=== PATIENT | male | born 1955 | race Caucasian/White ===

== ENCOUNTER 2016-11-06 09:09 | Outpatient (CLI) | payer OTHER ==
[2013-08-19 15:17] VITALS: BP 130/70
== END 2016-11-06 09:10 ==
LOC: LAB 09:09
PROVIDERS: ATTEND Family Medicine
DX: Z51.81 Encounter for therapeutic drug level monitoring (principal); Z79.01 Long term (current) use of anticoagulants
CPT/HCPCS: 36415; 85610

== ENCOUNTER 2016-11-27 09:04 | Outpatient (CLI) | payer OTHER ==
[2013-08-19 15:17] VITALS: BP 130/70
== END 2016-11-27 09:05 ==
LOC: LAB 09:04
PROVIDERS: ATTEND Family Medicine
DX: E11.9 Type 2 diabetes mellitus without complications (principal)
CPT/HCPCS: 36415; 83036

== ENCOUNTER 2016-12-07 08:14 | Outpatient (CLI) | payer OTHER ==
[2013-08-19 15:17] VITALS: BP 130/70
== END 2016-12-07 08:15 ==
LOC: LAB 08:14
PROVIDERS: ATTEND Family Medicine
DX: Z51.81 Encounter for therapeutic drug level monitoring (principal); Z79.01 Long term (current) use of anticoagulants; I48.2 Chronic atrial fibrillation
CPT/HCPCS: 36415; 85610

== ENCOUNTER 2016-12-21 08:00 | Outpatient (CLI) | payer OTHER ==
[2013-08-19 15:17] VITALS: BP 130/70
== END 2016-12-21 08:02 ==
LOC: LAB 08:00
PROVIDERS: ATTEND Family Medicine
DX: Z51.81 Encounter for therapeutic drug level monitoring (principal); Z79.01 Long term (current) use of anticoagulants
CPT/HCPCS: 36415; 85610

== ENCOUNTER 2017-01-22 08:37 | Outpatient (CLI) | payer OTHER ==
[2013-08-19 15:17] VITALS: BP 130/70
== END 2017-01-22 08:40 ==
LOC: LAB 08:37
PROVIDERS: ATTEND Family Medicine
DX: Z51.81 Encounter for therapeutic drug level monitoring (principal); Z79.01 Long term (current) use of anticoagulants
CPT/HCPCS: 36415; 85610

== ENCOUNTER 2017-02-20 10:25 | Emergency (ER) | payer OTHER ==
--- NOTE | 2017-02-20 11:06 | ED Physician Documentation ---
General Adult - HISTORIAN Historian: patient - HPI Chief Complaint: Upper Back Injury/ Pain Onset: days ago (2 days) Timing: still present Severity: mild Further Comments: yes - ROS CONST: no problems - PAST HX Past History: COPD, A-Fib, other (GERDs, sleep apnea, hyperlipdemia) Other History: diabetes Type 2 Surgeries/Procedures: other (heart valve replacement, ) Allergies/Adverse Reactions: Allergies Allergy/AdvReac Type Severity Reaction Status Date / Time amoxicillin [Amoxicillin] Allergy Severe Anaphylaxis Verified 02/20/17 11:04 Home Medications: Ambulatory Orders Medication Instructions Recorded Aspirin [Mavis] 81 mg PO 1T 02/20/17 Canagliflozin [Invokana] 100 mg PO BID 02/20/17 Potassium Chloride [Klor-Con 10 meq PO 1202/20/17 Sprinkle] - SOCIAL HX Smoking History: greater than 1 pack/day Alcohol Use: occasionally Drug Use: none - FAMILY HX Family History: No - VITAL SIGNS Vital Signs: Vital Signs Temp Pulse Resp BP Pulse Ox 130/70 08/19/13 15:14 - REVIEWED ASSESSMENTS Nursing Assessment Reviewed: Yes Vitals Reviewed: Yes General Adult Physical Exam - PHYSICAL EXAM GENERAL APPEARANCE: mild distress NECK: normal inspection RESPIRATORY: no resp distress, chest non-tender, breath sounds normal CVS: reg rate & rhythm, other (murmur and click) ABDOMEN: soft, no organomegaly, normal bowel sounds, no abdominal bruit SKIN: other (left mid vega nodule3-4mm in diameter. Movable.) NEURO: oriented X3, mood/affect nml, cognition normal Discharge Clincal Impression: Hand pain, left Referrals: Colette Escobar MD [Primary Care Provider] - 2 Days Additional Instructions: Watch the spot in your hand. Follow-up with Dr Escobar as needed. Home Medications: Ambulatory Orders Aspirin [Mavis] 81 mg PO 1T 02/20/17 Canagliflozin [Invokana] 100 mg PO BID 02/20/17 Potassium Chloride [Klor-Con Sprinkle] 10 meq PO 12HS 02/20/17 Condition: Stable Disposition: 01 HOME, SELF-CARE Decision to Admit: NO Date of Decison to Admit: 02/20/17 Decision Time: 12:27
[2017-02-20 12:42] VITALS: BP 110/67
== END 2017-02-20 12:39 | disposition home or self-care (01) ==
LOC: ED 10:25
DX: M79.642 Pain in left hand (principal)
CPT/HCPCS: 36415; 85610; 99283

== ENCOUNTER 2017-03-05 09:02 | Outpatient (CLI) | payer OTHER ==
[2017-03-05 09:29] LABS: BASOPHILS % 0.5 (0.0-1.5); EOSINOPHILS % 3.3 % (0.0-6.8); MEAN CORPUSCULAR HEMOGLOBIN 31.6 pg (28.0-34.0); MEAN CORPUSCULAR VOLUME 96.2 fl (80.0-100.0); MONOCYTES % 4.9 % (0.0-11.0); NEUTROPHILS # 5.5 # k/uL (1.4-7.7)
[2017-03-05 09:59] LABS: eGFR (African) > 60; eGFR (Non-African) > 60
--- NOTE | 2017-03-05 14:12 | Diagnostic Imaging Report ---
[facility] [address] [facility] [address] Report Submission Date: March 05, 2017 11:03:37 AM CDT Patient Study Name: LENNOX DOE Date: March 05, 2017 9:53:14 AM CDT Modality Type: CR Gender: M Description: CHEST : 59 Institution: [facility] Physician MICHELLE ATKINSON - OP Chest -two views CLINICAL HISTORY: Weight loss. Smoking history. FINDINGS: Examination of the chest in PA and lateral views with no prior film for comparison demonstrates the lungs to be clear. There are postoperative changes with sternotomy wires and prosthetic valve. Degenerative changes are present in the shoulders. IMPRESSION: Postoperative chest. No active disease. Electronically signed on March 05, 2017 11:03:37 AM CDT by: Zi PADILLA
== END 2017-03-05 09:03 ==
LOC: RAD 09:02
PROVIDERS: ATTEND Family Medicine
DX: E11.9 Type 2 diabetes mellitus without complications (principal); R63.4 Abnormal weight loss
CPT/HCPCS: 36415; 71020; 80053; 80061; 82043; 83036; 84443; 85025

== ENCOUNTER 2017-04-02 07:50 | Outpatient (CLI) | payer OTHER | END 2017-04-02 07:52 | LOC: LAB 07:50 | PROVIDERS: ATTEND Family Medicine | DX: Z51.81 Encounter for therapeutic drug level monitoring (principal) | CPT/HCPCS: 36415; 85610 ==

== ENCOUNTER 2017-04-10 14:13 | Outpatient (CLI) | payer OTHER | END 2017-04-10 14:18 | disposition home or self-care (01) | LOC: CARD 14:13 | PROVIDERS: ATTEND Internal Medicine Cardiovascular Disease | DX: Z95.4 Presence of other heart-valve replacement (principal) | CPT/HCPCS: G0463 ==

== ENCOUNTER 2017-04-26 08:05 | Outpatient (CLI) | payer OTHER | END 2017-04-26 08:06 | LOC: LAB 08:05 | PROVIDERS: ATTEND Family Medicine | DX: Z79.01 Long term (current) use of anticoagulants (principal) | CPT/HCPCS: 36415; 85610 ==

== ENCOUNTER 2017-05-01 08:05 | Outpatient (CLI) | payer OTHER | END 2017-05-01 08:06 | LOC: LAB 08:05 | PROVIDERS: ATTEND Family Medicine | DX: Z79.01 Long term (current) use of anticoagulants (principal) | CPT/HCPCS: 36415; 85610 ==

== ENCOUNTER 2017-05-15 07:53 | Outpatient (CLI) | payer OTHER | END 2017-05-15 07:54 | LOC: LAB 07:53 | PROVIDERS: ATTEND Family Medicine | DX: Z79.01 Long term (current) use of anticoagulants (principal) | CPT/HCPCS: 36415; 85610 ==

== ENCOUNTER 2017-05-22 08:08 | Outpatient (CLI) | payer OTHER | END 2017-05-22 08:10 | LOC: LAB 08:08 | PROVIDERS: ATTEND Family Medicine | DX: Z51.81 Encounter for therapeutic drug level monitoring (principal) | CPT/HCPCS: 36415; 85610 ==

== ENCOUNTER 2017-06-11 08:50 | Outpatient (CLI) | payer OTHER | END 2017-06-11 08:52 | LOC: LAB 08:50 | PROVIDERS: ATTEND Family Medicine | DX: E11.9 Type 2 diabetes mellitus without complications (principal) | CPT/HCPCS: 36415; 83036 ==

== ENCOUNTER 2017-07-05 08:26 | Outpatient (CLI) | payer OTHER | END 2017-07-05 08:27 | LOC: LAB 08:26 | PROVIDERS: ATTEND Family Medicine | DX: Z79.01 Long term (current) use of anticoagulants (principal) | CPT/HCPCS: 36415; 85610 ==

== ENCOUNTER 2017-07-10 08:05 | Outpatient (CLI) | payer OTHER | END 2017-07-10 08:06 | LOC: LAB 08:05 | PROVIDERS: ATTEND Family Medicine | DX: Z79.01 Long term (current) use of anticoagulants (principal) | CPT/HCPCS: 36415; 85610 ==

== ENCOUNTER 2017-07-30 07:56 | Outpatient (CLI) | payer OTHER | END 2017-07-30 07:57 | LOC: LAB 07:56 | PROVIDERS: ATTEND Family Medicine | DX: Z51.81 Encounter for therapeutic drug level monitoring (principal) | CPT/HCPCS: 36415; 85610 ==

== ENCOUNTER 2017-08-31 07:57 | Outpatient (CLI) | payer OTHER | END 2017-08-31 08:00 | LOC: LAB 07:57 | PROVIDERS: ATTEND Family Medicine | DX: Z51.81 Encounter for therapeutic drug level monitoring (principal) | CPT/HCPCS: 36415; 85610 ==

== ENCOUNTER 2017-10-08 08:25 | Outpatient (CLI) | payer OTHER | END 2017-10-08 08:26 | LOC: LAB 08:25 | PROVIDERS: ATTEND Family Medicine | DX: E11.9 Type 2 diabetes mellitus without complications (principal); Z51.81 Encounter for therapeutic drug level monitoring | CPT/HCPCS: 36415; 83036; 85610 ==

== ENCOUNTER 2017-10-29 08:14 | Outpatient (CLI) | payer OTHER | END 2017-10-29 08:15 | LOC: LAB 08:14 | PROVIDERS: ATTEND Family Medicine | DX: Z51.81 Encounter for therapeutic drug level monitoring (principal) | CPT/HCPCS: 36415; 85610 ==

== ENCOUNTER 2017-11-28 08:00 | Outpatient (CLI) | payer OTHER | END 2017-11-28 08:02 | LOC: LAB 08:00 | PROVIDERS: ATTEND Family Medicine | DX: Z51.81 Encounter for therapeutic drug level monitoring (principal) | CPT/HCPCS: 36415; 85610 ==

== ENCOUNTER 2017-12-27 08:00 | Outpatient (CLI) | payer OTHER | END 2017-12-27 08:02 | LOC: LAB 08:00 | PROVIDERS: ATTEND Family Medicine | DX: Z51.81 Encounter for therapeutic drug level monitoring (principal) | CPT/HCPCS: 36415; 85610 ==

== ENCOUNTER 2018-01-10 08:04 | Outpatient (CLI) | payer OTHER | END 2018-01-10 08:05 | LOC: LAB 08:04 | PROVIDERS: ATTEND Family Medicine | DX: Z51.81 Encounter for therapeutic drug level monitoring (principal) | CPT/HCPCS: 36415; 85610 ==

== ENCOUNTER 2018-01-16 08:51 | Outpatient (CLI) | payer OTHER ==
[2018-01-16 09:42] LABS: MEAN CORPUSCULAR HEMOGLOBIN 31.3 pg (28.0-34.0); MEAN CORPUSCULAR VOLUME 93.6 fl (80.0-100.0)
[2018-01-16 09:51] LABS: eGFR (African) > 60; eGFR (Non-African) > 60
--- NOTE | 2018-01-16 19:13 | Diagnostic Imaging Report ---
MICHELLE ATKINSON [facility] [address] [facility] [address] [address] Report Submission Date: Jan 16, 2018 10:07:44 AM CDT Patient Study Name: LENNOX DOE Date: Jan 16, 2018 9:27:09 AM CDT Modality Type: DX Gender: M Description: LOWER EXTREMITY : 59 Institution: [facility] Physician: MICHELLE ATKINSON Examination: Plain film left calcaneus History: LT CALCANEUS, LT HEEL PAIN X3 WEEKS, NO KNOWN INJURY (Hx) / ITS.REASON L heel pain (DICOM Hx) / ITS.REASON L heel pain (Pt comments) Findings: 2 views of the left calcaneus demonstrates normal cortical margins. No fracture or dislocation. Inferior and posterior spurs. No soft tissue swelling. No joint effusion. Impression: Calcaneal spurs. No acute osseous process. If suspect plantar fasciitis or Achilles tendon inflammation, consider obtaining MRI. Electronically signed on Jan 16, 2018 10:07:44 AM CDT by: Kendell PADILLA
--- NOTE | 2018-01-16 19:14 | Diagnostic Imaging Report ---
MICHELLE ATKINSON [facility] [address] [facility] [address] [place] [address]. [id number] Report Submission Date: Jan 16, 2018 10:05:32 AM CDT Patient Study Name: LENNOX DOE Date: Jan 16, 2018 9:13:42 AM CDT Modality Type: DX Gender: M Description: ABDOMEN : 59 Institution: [facility] Physician: MICHELLE ATKINSON Examination: Abdomen series History: Abdominal discomfort Findings: 3 views obtained of the abdomen. No abnormal dilation of the large or small bowel. Air and stool throughout the large bowel. No suspicious calcification projecting over the renal fossa or the lower pelvic region. Osseous structures are appropriate for age. Impression: Significant large bowel stool - constipation. No obstruction. No suspicious calcifications by plain film sensitivity. Electronically signed on Jan 16, 2018 10:05:32 AM CDT by: Kendell PADILLA
--- NOTE | 2018-01-16 19:14 | Diagnostic Imaging Report ---
MICHELLE ATKINSON [facility] [address] [facility] [address] [place], [place]. [address] Report Submission Date: Jan 16, 2018 10:01:57 AM CDT Patient Study Name: LENNOX DOE Date: Jan 16, 2018 9:10:10 AM CDT Modality Type: DX Gender: M Description: CHEST : 59 Institution: [facility] Physician: MICHELLE ATKINSON Examination: PA and lateral chest. History: Evaluate lung carter. CXR, UNEXPLAINED WEIGHT LOSS SINCE OCTOBER 2017 , SMOKER, CHRONIC COUGH (Hx) Comparison exam: None provided. Findings: PA lateral chest demonstrate a normal cardiac and mediastinal silhouette. Sternotomy wires. Cardiac valve. No focal infiltrate. No blunting of the costophrenic margins. Articular degenerative changes. Impression: No acute appearing pulmonary process. Electronically signed on Jan 16, 2018 10:01:57 AM CDT by: Kendell PADILLA
== END 2018-01-16 08:52 ==
LOC: LAB 08:51
PROVIDERS: ATTEND Family Medicine
DX: M79.672 Pain in left foot (principal); E11.9 Type 2 diabetes mellitus without complications; R63.4 Abnormal weight loss; R10.12 Left upper quadrant pain; F17.200 Nicotine dependence, unspecified, uncomplicated
CPT/HCPCS: 36415; 71046; 73650; 74019; 80053; 83036; 84443; 85027

== ENCOUNTER 2018-01-30 09:14 | Outpatient (CLI) | payer OTHER ==
--- NOTE | 2018-01-30 16:24 | Diagnostic Imaging Report ---
MICHELLE ATKINSON [facility] [address] [facility] [address] [place], [place]. [address] Report Submission Date: Jan 30, 2018 11:53:00 AM CDT Patient Study Name: LENNOX DOE Date: Jan 30, 2018 10:20:15 AM CDT Modality Type: CT\SR Gender: M Description: CT CHEST W/O CONTRAST : 59 Institution: [facility] Physician: MICHELLE ATKINSON Examination: CT chest History: UNEXPLAINED WEIGHT LOSS/SMOKER/ABDOMINAL PAIN (Hx) Comparison exams: Plain film chest dated 16 January 2018. Technique: CT chest without contrast protocol: Coronal or sagittal reconstruction images not provided. Findings: Lung pleura, parenchyma, and pulmonary vascularity are without irregularity. No evidence for suspicious nodule or spiculated lesion. Anterior mediastinum and leela are without gross mass or pathologic adenopathy: though sensitivity is reduced on a noncontrast exam. Thoracic aorta with minimal peripheral atherosclerotic disease. No aneurysm. Cardiac silhouette not enlarged. No pericardial effusion. Valve replacement. Lower neck structures, upper abdominal organs, and osseous structures are without gross abnormality. Impression: No acute parenchymal process. No evidence for suspicious nodule or acute consolidative process. No effusion. Electronically signed on Jan 30, 2018 11:53:00 AM CDT by: Kendell PADILLA
--- NOTE | 2018-01-30 16:26 | Diagnostic Imaging Report ---
MICHELLE ATKINSON [facility] [address] [facility] [address] [place] [address]. [address] Report Submission Date: Jan 30, 2018 12:02:48 PM CDT Patient Study Name: LENNOX DOE Date: Jan 30, 2018 10:41:10 AM CDT Modality Type: CT\SR Gender: M Description: CT ABD PELVIS W/ CON : 59 Institution: [facility] Physician: MICHELLE ATKINSON Examination: CT Abdomen/pelvis History: UNEXPLAINED WEIGHT LOSS/SMOKER/ABDOMINAL PAIN (Hx) Comparison exams: None available Technique: CT Abdomen/pelvis with IV protocol. Findings: Liver demonstrates diffuse low attenuation. No central lesion. Spleen , adrenals, pancreas, kidneys and gallbladder are without gross irregularity. No abnormal enhancement. No gallstone. No suspicious renal calcifications. Ureters are nondilated in their course through the abdomen and pelvis. No central calcification. Bladder margin within normal limits. Atherosclerotic disease involving the abdominal aorta. No aneurysmal dilation. No periaortic adenopathy. Prostate calcifications. No abnormal small bowel dilation. Stool within the large bowel limiting sensitivity. No mesenteric inflammatory changes or free fluid. Appendix is visualized and is without inflammatory changes. No mesenteric adenopathy. Osseous structures demonstrate mild degenerative spurring. Lung bases without infiltrate. Impression: No abdominal mass or inflammatory process. No pathologic adenopathy. No gallstone. No suspicious renal calcifications or abnormal ureteric dilation. Fatty liver. Large bowel stool - constipation. No lung base consolidation or effusion. Electronically signed on Jan 30, 2018 12:02:48 PM CDT by: Kendell PADILLA
== END 2018-01-30 09:15 ==
LOC: RAD 09:14
PROVIDERS: ATTEND Family Medicine
DX: R63.4 Abnormal weight loss (principal)
CPT/HCPCS: 71250; 74177; Q9967

== ENCOUNTER 2018-02-13 09:30 | Outpatient (CLI) | payer OTHER | END 2018-02-13 09:32 | LOC: LAB 09:30 | PROVIDERS: ATTEND Family Medicine | DX: Z51.81 Encounter for therapeutic drug level monitoring (principal) | CPT/HCPCS: 36415; 85610 ==

== ENCOUNTER 2018-02-28 07:55 | Outpatient (CLI) | payer OTHER | END 2018-02-28 07:56 | LOC: LAB 07:55 | PROVIDERS: ATTEND Family Medicine | DX: Z51.81 Encounter for therapeutic drug level monitoring (principal) | CPT/HCPCS: 36415; 85610 ==

== ENCOUNTER 2018-03-14 07:59 | Outpatient (CLI) | payer OTHER | END 2018-03-14 12:15 | LOC: LAB 07:59 | PROVIDERS: ATTEND Family Medicine | DX: Z51.81 Encounter for therapeutic drug level monitoring (principal) | CPT/HCPCS: 36415; 85610 ==

== ENCOUNTER 2018-03-26 13:18 | Outpatient (CLI) | payer OTHER | END 2018-03-26 13:20 | LOC: POD 13:18 | PROVIDERS: ATTEND Podiatrist | DX: M72.2 Plantar fascial fibromatosis (principal); E11.9 Type 2 diabetes mellitus without complications | CPT/HCPCS: G0463 ==

== ENCOUNTER 2018-03-29 08:03 | Outpatient (CLI) | payer OTHER ==
[2018-03-29 09:16] LABS: eGFR (African) > 60; eGFR (Non-African) > 60
== END 2018-03-29 08:04 ==
LOC: LAB 08:03
PROVIDERS: ATTEND Family Medicine
DX: R63.4 Abnormal weight loss (principal); Z12.5 Encounter for screening for malignant neoplasm of prostate
CPT/HCPCS: 36415; 80053; G0103

== ENCOUNTER 2018-04-09 12:36 | Outpatient (CLI) | payer OTHER | END 2018-04-09 12:38 | LOC: POD 12:36 | PROVIDERS: ATTEND Podiatrist | DX: M72.2 Plantar fascial fibromatosis (principal) | CPT/HCPCS: G0463 ==

== ENCOUNTER 2018-04-23 12:47 | Outpatient (CLI) | payer OTHER | END 2018-04-23 12:50 | LOC: CARD 12:47 | PROVIDERS: ATTEND Internal Medicine Cardiovascular Disease | DX: Z95.2 Presence of prosthetic heart valve (principal); I48.92 Unspecified atrial flutter; Z72.0 Tobacco use; R60.9 Edema, unspecified; G47.30 Sleep apnea, unspecified; E78.5 Hyperlipidemia, unspecified; E11.9 Type 2 diabetes mellitus without complications | CPT/HCPCS: G0463 ==

== ENCOUNTER 2018-05-03 08:07 | Outpatient (CLI) | payer OTHER | END 2018-05-03 08:12 | LOC: LAB 08:07 | PROVIDERS: ATTEND Family Medicine | DX: Z51.81 Encounter for therapeutic drug level monitoring (principal) | CPT/HCPCS: 36415; 85610 ==

== ENCOUNTER 2018-06-05 09:31 | Outpatient (CLI) | payer OTHER | END 2018-06-05 09:33 | LOC: LAB 09:31 | PROVIDERS: ATTEND Family Medicine | DX: Z51.81 Encounter for therapeutic drug level monitoring (principal); E11.9 Type 2 diabetes mellitus without complications | CPT/HCPCS: 36415; 83036; 85610 ==

== ENCOUNTER 2018-06-27 08:03 | Outpatient (CLI) | payer OTHER | END 2018-06-27 08:05 | LOC: LAB 08:03 | PROVIDERS: ATTEND Family Medicine | DX: Z51.81 Encounter for therapeutic drug level monitoring (principal) | CPT/HCPCS: 36415; 85610 ==

== ENCOUNTER 2018-08-23 08:32 | Outpatient (CLI) | payer OTHER | END 2018-08-23 08:33 | LOC: LAB 08:32 | PROVIDERS: ATTEND Family Medicine | DX: Z79.01 Long term (current) use of anticoagulants (principal) | CPT/HCPCS: 36415; 85610 ==

== ENCOUNTER 2018-09-04 09:03 | Outpatient (CLI) | payer OTHER | END 2018-09-04 09:05 | LOC: LAB 09:03 | PROVIDERS: ATTEND Family Medicine | DX: E11.9 Type 2 diabetes mellitus without complications (principal) | CPT/HCPCS: 36415; 83036 ==

== ENCOUNTER 2018-09-30 13:07 | Outpatient (CLI) | payer OTHER ==
--- NOTE | 2018-10-04 13:40 | OP Clinic Progress Note ---
SUBJECTIVE: Santi Evans is a 62-year-old male presenting today for follow up of bilateral plantar fasciitis and heel pain. The patient states that he has been doing the stretching exercises as much as he could and feels that they are helping tremendously. He does not want any sort of injection today. The patient states that he has improved greatly and admits his pain is maybe only 1 or 2 out of 10 at this point in time. The patient does not admit to any fever, chills, nausea, vomiting, shortness of breath, or chest pain at this time. OBJECTIVE: VITAL SIGNS: T: 97.3 degrees Fahrenheit, R: 16, heart rate: 62, BP: 106/62, oxygen saturation is 92% on room air. VASCULAR: 2+ DP and PT pulses bilaterally. Capillary refill time is less than 3 seconds to the toes bilaterally. No edema noted bilaterally. DERMATOLOGIC: There is no ecchymosis or hyperkeratosis or skin coloration noted. The patient does have incurvated toenails, however, bilaterally. Toenails are long, thick, and discolored bilaterally. MUSCULOSKELETAL: Pain on palpation is 1 or 2 out of 10 at bilateral heels at the plantar medial calcaneal tubercle. There is no pain on palpation noted at the Achilles tendon insertion bilaterally. Patient had zero degrees dorsiflexion of the ankle bilaterally with the knee extended. No other gross abnormalities noted. NEUROLOGIC: Light touch sensation is intact to the toes bilaterally. ASSESSMENT: Plantar fasciitis of both feet. PLAN: The patient is improving and we discussed that he will continue stretching exercises as he has been previously. He will continue utilizing the [employer] inserts prescribed previously. He refuses any newer prescription for [employer] from [employer]. The patient knows that he can call and request that prescription at any time he feels ready, as it is a financial concern at this time for him. The patient will return to the [facility] as needed as the patient states he would rather call if this is not getting better going forward. As a courtesy, I trimmed the patient's great toes where they looked like they may begin to grow into the skin soon. This was just a courtesy. Please do not charge for it. The remaining toenails were also trimmed as a courtesy today. cc: Dr. Colette PADILLA
== END 2018-09-30 13:10 ==
LOC: POD 13:07
PROVIDERS: ATTEND Podiatrist Foot & Ankle Surgery
DX: M72.2 Plantar fascial fibromatosis (principal)
CPT/HCPCS: 99211; G0463

== ENCOUNTER 2018-10-07 08:19 | Outpatient (CLI) | payer OTHER | END 2018-10-07 08:24 | disposition home or self-care (01) | LOC: LAB 08:19 | PROVIDERS: ATTEND Family Medicine | DX: Z79.01 Long term (current) use of anticoagulants (principal) | CPT/HCPCS: 36415; 85610 ==

== ENCOUNTER 2018-10-16 08:01 | Outpatient (CLI) | payer OTHER | END 2018-10-16 08:03 | LOC: LAB 08:01 | PROVIDERS: ATTEND Family Medicine | DX: Z79.01 Long term (current) use of anticoagulants (principal) | CPT/HCPCS: 36415; 85610 ==

== ENCOUNTER 2018-10-24 08:08 | Outpatient (CLI) | payer OTHER | END 2018-10-24 08:14 | LOC: LAB 08:08 | PROVIDERS: ATTEND Family Medicine | DX: Z79.01 Long term (current) use of anticoagulants (principal); Z51.81 Encounter for therapeutic drug level monitoring | CPT/HCPCS: 36415; 85610 ==

== ENCOUNTER 2018-12-04 08:47 | Outpatient (CLI) | payer OTHER ==
[2018-12-04 09:21] LABS: eGFR (Non-African) > 60
== END 2018-12-04 08:50 ==
LOC: LAB 08:47
PROVIDERS: ATTEND Family Medicine
DX: E11.9 Type 2 diabetes mellitus without complications (principal); Z11.59 Encounter for screening for other viral diseases; Z79.01 Long term (current) use of anticoagulants
CPT/HCPCS: 36415; 80053; 80061; 82043; 83036; 85610; 86803

== ENCOUNTER 2018-12-16 08:05 | Outpatient (CLI) | payer OTHER | END 2018-12-16 08:07 | LOC: LAB 08:05 | PROVIDERS: ATTEND Family Medicine | DX: Z79.01 Long term (current) use of anticoagulants (principal) | CPT/HCPCS: 36415; 85610 ==

== ENCOUNTER 2018-12-24 08:30 | Outpatient (CLI) | payer OTHER | END 2018-12-24 08:33 | LOC: LAB 08:30 | PROVIDERS: ATTEND Family Medicine | DX: Z79.01 Long term (current) use of anticoagulants (principal) | CPT/HCPCS: 36415; 85610 ==

== ENCOUNTER 2019-01-06 08:11 | Outpatient (CLI) | payer OTHER | END 2019-01-06 08:13 | LOC: LAB 08:11 | PROVIDERS: ATTEND Family Medicine | DX: Z79.01 Long term (current) use of anticoagulants (principal) | CPT/HCPCS: 36415; 85610 ==

== ENCOUNTER 2019-03-28 08:36 | Outpatient (CLI) | payer OTHER ==
--- NOTE | 2019-05-01 08:35 | Diagnostic Imaging Report ---
BERONICA LISA [facility] [address] [facility] [address] [place], [place]. [address] Report Submission Date: Mar 28, 2019 10:13:11 AM CDT Patient Study Name: LENNOX DOE Date: Mar 28, 2019 9:52:56 AM CDT Modality Type: DX Gender: M Description: PELVIS AP 1 OR 2 VIEWS : 59 Institution: [facility] Physician: BERONICA LISA Exam: AP pelvis. History: Subluxation. Single AP view of the pelvis are submitted. No previous studies are available for comparison. No signs of acute fracture or dislocation is seen. No bony erosions are seen. Mild spurring at both hip joints are noted. 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 Electronically signed on Mar 28, 2019 10:13:11 AM CDT by: Vincent PADILLA
== END 2019-03-28 12:18 ==
LOC: OUT 08:36
PROVIDERS: ATTEND Chiropractor
DX: M99.15 Subluxation complex (vertebral) of pelvic region (principal); M70.62 Trochanteric bursitis, left hip; M99.06 Segmental and somatic dysfunction of lower extremity; M47.27 Other spondylosis with radiculopathy, lumbosacral region
CPT/HCPCS: 72170; 99202

== ENCOUNTER 2019-06-05 08:38 | Outpatient (CLI) | payer OTHER | END 2019-06-05 08:40 | LOC: LAB 08:38 | PROVIDERS: ATTEND Family Medicine | DX: E11.9 Type 2 diabetes mellitus without complications (principal) | CPT/HCPCS: 36415; 83036; 85610 ==

== ENCOUNTER 2019-07-07 08:15 | Outpatient (CLI) | payer OTHER | END 2019-07-07 08:17 | LOC: LAB 08:15 | PROVIDERS: ATTEND Family Medicine | DX: Z51.81 Encounter for therapeutic drug level monitoring (principal); Z79.01 Long term (current) use of anticoagulants | CPT/HCPCS: 36415; 85610 ==

== ENCOUNTER 2019-08-26 08:48 | Outpatient (CLI) | payer MEDICARE, OTHER | END 2019-08-26 08:53 | LOC: LAB 08:48 | PROVIDERS: ATTEND Family Medicine | DX: Z51.81 Encounter for therapeutic drug level monitoring (principal); Z79.01 Long term (current) use of anticoagulants | CPT/HCPCS: 36415; 85610 ==

== ENCOUNTER 2019-09-10 08:26 | Outpatient (CLI) | payer MEDICARE, OTHER | END 2019-09-10 08:31 | LOC: LAB 08:26 | PROVIDERS: ATTEND Family Medicine | DX: Z51.81 Encounter for therapeutic drug level monitoring (principal); Z79.01 Long term (current) use of anticoagulants | CPT/HCPCS: 36415; 85610 ==

== ENCOUNTER 2019-09-29 08:47 | Outpatient (CLI) | payer MEDICARE, OTHER | END 2019-09-29 08:52 | LOC: LAB 08:47 | PROVIDERS: ATTEND Family Medicine | DX: E11.9 Type 2 diabetes mellitus without complications (principal) | CPT/HCPCS: 36415; 83036 ==